=== PATIENT | female | born 1995 | race African-American/Black ===

== ENCOUNTER 2020-05-06 15:52 | Emergency (ER) | payer OTHER ==
[2020-05-06] MEDS ORDERED: KETOROLAC TROMETHAMINE 30MG/ML ONE ×2 (16:58→17:00)
== END 2020-05-06 17:34 | disposition home or self-care (01) ==
LOC: EDH 15:52
DX: M67.432 Ganglion, left wrist (principal)
CPT/HCPCS: 29125; 96372; 99283; J1885 ×2